=== PATIENT | female | born 1990 | race Caucasian/White ===

== ENCOUNTER 2018-05-09 17:38 | Emergency (ER) | payer MEDICAID, OTHER ==
[~2018-05-09] VITALS: Ht 160 cm; Wt 68.9 kg
[~2018-05-09 17:38] MED LIST: CALC500T2 PO; PRE NATAL VITAMINS
[2018-05-09 17:45] VITALS: BP 124/84
[2018-05-09 20:00] VITALS: BP 120/86
== END 2018-05-09 20:00 | disposition home or self-care (01) ==
LOC: MED 17:38
DX: B02.9 Zoster without complications (principal); Z90.49 Acquired absence of other specified parts of digestive tract; Z87.442 Personal history of urinary calculi
CPT/HCPCS: 99283

== ENCOUNTER 2021-08-18 10:16 | Emergency (ER) | payer SELFPAY ==
[~2021-08-18] VITALS: Ht 160 cm; Wt 67.1 kg
[2021-08-18 10:28] VITALS: BP 119/78
--- NOTE | 2021-08-18 10:32 | NUR ---
PT TO WAIT IN LOBBY
[2021-08-18] MEDS ORDERED: IBUP-2213 PO (10:53)
--- NOTE | 2021-08-18 11:23 | NUR ---
PT RIGHT ANKLE WRAPED WITH 3" LAVONNE WRAP, CMS WNL BEFORE AND AFTER. PT ALSO GIVEN CRUTCHES THAT WERE ADJUSTED TO PTS SIZE AND HEIGHT, PT STATES THAT THEY ALL READY KNOW HOW TO USE THEM AND SHOWED PROPER DEMENSTRATION OF CRUTCHES. PT HAD NO FURTHER QUESTIONS AND RN NOTIFIED.
[2021-08-18 11:27] VITALS: BP 119/78
--- NOTE | 2021-08-18 11:28 | NUR ---
Patient discharged with v/s stable. Written and verbal after care instructions given and explained. Patient alert, oriented and verbalized understanding of instructions. Ambulatory with CRUTCHES to car. All questions addressed prior to discharge. ID band removed. Patient advised to follow up with PMD. Rx of [id number] given. Patient educated on indication of medication including possible reaction and side effects. Opportunity to ask questions provided and answered.
== END 2021-08-18 11:28 | disposition home or self-care (01) ==
LOC: MED 10:16
DX: S93.401A Sprain of unspecified ligament of right ankle, initial encounter (principal); Z79.899 Other long term (current) drug therapy; X50.1XXA Overexertion from prolonged static or awkward postures, initial encounter; Y93.89 Activity, other specified; Y92.89 Other specified places as the place of occurrence of the external cause; Y99.8 Other external cause status
CPT/HCPCS: 73610; 99283